=== PATIENT | female | born 1975 | race Caucasian/White ===

== ENCOUNTER 2021-11-05 09:09 | Day surgery (SDC) | payer BC ==
[~2021-11-05 09:09] MED LIST: Lactated Ringers 1,000 ML IV SCH; Propofol 200 MG/20 ML SDV ONE; fentaNYL 100 MCG/2 ML SDV ONE
[2021-11-05] MEDS ORDERED: Propofol 200 MG/20 ML SDV ONE ×2 (10:50→11:48)
[2021-11-05] MEDS ORDERED: Lidocaine 2% 5 ML SDV ONE (11:31)
== END 2021-11-05 12:20 | disposition home or self-care (01) ==
LOC: MW.SDS 09:09
PROVIDERS: ATTEND Surgery
DX: K92.1 Melena (principal); D64.9 Anemia, unspecified; K64.8 Other hemorrhoids; G43.909 Migraine, unspecified, not intractable, without status migrainosus; F17.210 Nicotine dependence, cigarettes, uncomplicated; Z79.899 Other long term (current) drug therapy
CPT/HCPCS: 43239; 45378; 81025; J2704; J3010; J7120; 00813

== ENCOUNTER 2022-10-04 05:14 | Emergency (ER) | payer BC ==
[2022-10-04] MEDS ORDERED: fentaNYL 50 MCG/ML SDV IVPUSH ONE (05:23)
[2022-10-04] MEDS ORDERED: Ondansetron 4 MG/2 ML SDV IVPUSH ONE (05:23)
[2022-10-04] MEDS ORDERED: Sodium Chloride 0.9% 1,000 ML IV ONE (05:23)
[2022-10-04] MEDS ORDERED: Sodium Chloride 0.9% 2.5 ML Syringe FLUSH PRN (05:23)
[2022-10-04] MEDS ORDERED: Sodium Chloride 0.9% 10 ML Syringe FLUSH PRN (05:23)
[2022-10-04] MEDS ORDERED: Ketorolac 30 MG/ML SDV IVPUSH ONE (05:26)
[2022-10-04 06:58] LABS: CARBON DIOXIDE,CO2 23.5 mmol/L (21.0-32.0); POTASSIUM,K 4.1 mmol/L (3.5-5.1)
[2022-10-04 07:13] LABS: CORONAVIRUS COVID-19 NAA NEGATIVE (NEGATIVE); INFLUENZA A NAA NEGATIVE (NEGATIVE); INFLUENZA B NAA NEGATIVE (NEGATIVE)
[2022-10-04] MEDS ORDERED: HYDROmorphone 1 MG/ML Syringe IVPUSH ONE (07:49)
== END 2022-10-04 11:17 | disposition home or self-care (01) ==
LOC: MW.ED 05:14
DX: K80.20 Calculus of gallbladder without cholecystitis without obstruction (principal); Z20.822 Contact with and (suspected) exposure to COVID-19
CPT/HCPCS: 0240U; 36415; 74176; 76705; 80053; 81003; 83605; 83690; 84703; 85025; 96361; 96374; 96375; 99284; J1170; J1885; J2405; J3010; J3490; J7030

== ENCOUNTER 2022-10-16 08:57 | Day surgery (SDC) | payer BC ==
[~2022-10-16 08:57] MED LIST changes: +Albuterol 0.083% 2.5 MG/3 ML Neb Soln NEB PRN; +HYDROmorphone 1 MG/ML Syringe IVPUSH PRN; +Metoclopramide 10 MG/2 ML SDV IVPUSH PRN; +Morphine 2 MG/ML SYRINGE IVPUSH PRN; +Naloxone 0.4 MG/ML SDV IVPUSH PRN; +Ondansetron 4 MG/2 ML SDV IVPUSH PRN; -Propofol 200 MG/20 ML SDV ONE; +Sodium Chloride 0.9% 10 ML Syringe FLUSH PRN; +Sodium Chloride 0.9% 2.5 ML Syringe FLUSH PRN; +Sodium Chloride 0.9% 20 ML SDV IV PRN; +ceFAZolin 2 GM in Premix Bag 1 BAG IV ONE; -fentaNYL 100 MCG/2 ML SDV ONE; +fentaNYL 50 MCG/ML SDV IVPUSH PRN
[2022-10-16] MEDS ORDERED: Rocuronium Bromide 50 MG/5 ML Syringe ONE (09:46)
[2022-10-16] MEDS ORDERED: Sugammadex Sodium 200 MG/2 ML VIAL ONE (09:46)
[2022-10-16] MEDS ORDERED: fentaNYL 100 MCG/2 ML SDV ONE (09:46)
[2022-10-16] MEDS ORDERED: Lidocaine 2% 5 ML SDV ONE (09:46)
[2022-10-16] MEDS ORDERED: Ondansetron 4 MG/2 ML SDV ONE (09:46)
[2022-10-16] MEDS ORDERED: Dexamethasone 4 MG/ML 5 ML MDV ONE (09:46)
[2022-10-16] MEDS ORDERED: Propofol 200 MG/20 ML SDV ONE ×2 (09:46→09:50)
[2022-10-16] MEDS ORDERED: Ketorolac 30 MG/ML SDV ONE (09:46)
[2022-10-16] MEDS ORDERED: Ropivacaine 0.5% 5 MG/ML 30 ML SDV ONE (09:46)
[2022-10-16] MEDS ORDERED: Bupivacaine 0.5% 30 ML SDV ONE (09:47)
[2022-10-16] MEDS ORDERED: ceFAZolin 1 GM Vial ONE (10:13)
[2022-10-16] MEDS ORDERED: Indocyanine Green 25 MG SDV ONE (10:13)
[2022-10-16] MEDS ORDERED: Naloxone 0.4 MG/ML SDV ONE (10:59)
[2022-10-16] MEDS ORDERED: Acetaminophen 1,000 MG in Premix Bag 1 BAG IV ONE (11:59)
== END 2022-10-16 12:40 | disposition home or self-care (01) ==
LOC: MW.SDS 08:57
PROVIDERS: ATTEND Surgery
DX: K81.1 Chronic cholecystitis (principal); E61.1 Iron deficiency; G43.909 Migraine, unspecified, not intractable, without status migrainosus; F17.210 Nicotine dependence, cigarettes, uncomplicated; Z79.890 Hormone replacement therapy; Z98.890 Other specified postprocedural states
CPT/HCPCS: 47562; 81025; J0131; J0690; J1100; J1170; J1885; J2310; J2405; J2704; J2795; J3010; J3490; J7030; J7120; 00790; 64488